=== PATIENT | female | born 2000 | race Two or more races ===

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

== ENCOUNTER 2019-12-26 15:27 | Outpatient (CLI) | payer OTHER ==
[2019-12-26 16:44] LABS: APPEARANCE,URINE CLEAR; BILIRUBIN,URINE NEGATIVE (NEGATIVE); COLOR,URINE YELLOW; GLUCOSE, URINE NEGATIVE (NEGATIVE); KETONES,URINE NEGATIVE (NEGATIVE); LEUKOCYTE ESTERASE,URINE NEGATIVE (NEGATIVE); NITRITE,URINE NEGATIVE (NEGATIVE); PROTEIN,URINE NEGATIVE (NEGATIVE); UROBILINOGEN,URINE NEGATIVE mg/dL (<2.0)
[2019-12-26 17:00] LABS: URINE AMPHETAMINES SCREEN NEGATIVE; URINE BARBITURATES SCREEN NEGATIVE; URINE BENZODIAZEPINES SCREEN NEGATIVE; URINE COCAINE SCREEN NEGATIVE; URINE MARIJUANA (THC) SCREEN NEGATIVE; URINE METHADONE SCREEN NEGATIVE; URINE PHENCYCLIDINE SCREEN NEGATIVE
== END 2019-12-26 17:01 | disposition home or self-care (01) ==
LOC: LC 15:27
PROVIDERS: ATTEND Obstetrics & Gynecology
PROC: 4A1HXCZ Monitoring of Products of Conception, Cardiac Rate, External Approach (ICD-10-PCS; principal; 2019-12-26)
DX: O47.03 False labor before 37 completed weeks of gestation, third trimester (principal); Z3A.35 35 weeks gestation of pregnancy
CPT/HCPCS: 59025; 80307; 81001; 84112

== ENCOUNTER 2020-02-01 06:02 | Outpatient (CLI) | payer OTHER ==
--- NOTE | 2020-02-01 06:07 | Non Stress Test Report ---
Non Stress Test Datetime Report Generated by CPN: 02/01/2020 06:06 DEMOGRAPHIC EGA NST: 35.1 INDICATION Indication for Study (NST) Other: suspected ROM, ctx MONITORING Monitor Explained: Monitor Explained; Test Explained; Patient Verbalized Understanding Time on Monitor: 12/26/2019 15:45 Time off Monitor: 12/26/2019 16:08 NST Duration: 23 NST INTERVENTIONS NST Interventions: None Physician Notified NST: Dr Jose G BABY A: [id number] BABY A Movement : Present Contraction Frequency : 2-6 FHR Baseline : 145 Accelerations : 15X15 Decelerations : None Variability : Moderate 6-25bpm NST Review: Meets Criteria for Reactive NST NST Review and Verified By : TOM ROULUND, RN NST Results: Reactive NST REPORT Report Trigger: Send Report
[2020-02-01 07:15] LABS: APPEARANCE,URINE SLIGHTLY-CLOUDY; BILIRUBIN,URINE NEGATIVE (NEGATIVE); COLOR,URINE YELLOW; GLUCOSE, URINE NEGATIVE (NEGATIVE); KETONES,URINE NEGATIVE (NEGATIVE); LEUKOCYTE ESTERASE,URINE TRACE (NEGATIVE); NITRITE,URINE NEGATIVE (NEGATIVE); PROTEIN,URINE 30 mg/dL (NEGATIVE); URINE SPECIFIC GRAVITY 1.032; UROBILINOGEN,URINE NEGATIVE mg/dL (<2.0)
[2020-02-01 07:32] LABS: URINE AMPHETAMINES SCREEN NEGATIVE; URINE BARBITURATES SCREEN NEGATIVE; URINE BENZODIAZEPINES SCREEN NEGATIVE; URINE COCAINE SCREEN NEGATIVE; URINE MARIJUANA (THC) SCREEN NEGATIVE; URINE METHADONE SCREEN NEGATIVE; URINE PHENCYCLIDINE SCREEN NEGATIVE
--- NOTE | 2020-02-01 10:15 | Non Stress Test Report ---
Non Stress Test Datetime Report Generated by CPN: 02/01/2020 10:15 DEMOGRAPHIC Test Number: 2 EGA NST: 40.3 INDICATION Indication for Study (NST) Other: IUP at 40.3 MONITORING Monitor Explained: Monitor Explained; Test Explained; Patient Verbalized Understanding Time on Monitor: 02/01/2020 06:21 Time off Monitor: 02/01/2020 06:59 NST Duration: 38 NST INTERVENTIONS NST Interventions: PO Hydration Physician Notified NST: P Bojorquez, CNM BABY A Movement : Present Contraction Frequency : Irrgeular FHR Baseline : 140 Accelerations : 15X15 Decelerations : None Variability : Moderate 6-25bpm NST Review: Meets Criteria for Reactive NST NST Review and Verified By : Wanda Sol RN NST Results: Reactive NST REPORT Report Trigger: Send Report
== END 2020-02-01 10:01 | disposition home or self-care (01) ==
LOC: LC 06:02
PROVIDERS: ATTEND Obstetrics & Gynecology
PROC: 4A1HXCZ Monitoring of Products of Conception, Cardiac Rate, External Approach (ICD-10-PCS; principal; 2020-02-01)
DX: Z34.93 Encounter for supervision of normal pregnancy, unspecified, third trimester (principal)
CPT/HCPCS: 59025; 80307; 81005

== ENCOUNTER 2020-02-01 13:39 | Inpatient (IN) | payer OTHER ==
[2020-02-01] MEDS ORDERED: RINGERS SOLUTION,LACTATED 1,000 ML IV ONE (18:48)
[2020-02-01] MEDS ORDERED: RINGERS SOLUTION,LACTATED 1,000 ML IV PRN (18:48)
[2020-02-01 19:20] LABS: ABSOLUTE EOSINOPHILS # (AUTO) 0.1 10^3/uL (0.0-0.6); ABSOLUTE LYMPHOCYTES (AUTO) 3.2 10^3/uL (0.5-4.7); ABSOLUTE MONOCYTES (AUTO) 0.7 10^3/uL (0.1-1.4); ABSOLUTE NEUT (AUTO) 7.3 10^3/uL (1.7-8.2); BASOPHILS % (AUTO) 0.3 % (0-2); EOSINOPHILS % (AUTO) 0.5 % (0-6); HEMATOCRIT 34.8 % (36.0-47.0); HEMOGLOBIN 11.7 g/dL (12.0-15.5); LYMPHOCYTES % (AUTO) 28.3 % (13-45); MEAN CORPUSCULAR HEMOGLOBIN 26.2 pg (27.0-33.4); MEAN CORPUSCULAR HGB CONC 33.5 g/dL (32.0-36.0); MEAN CORPUSCULAR VOLUME 78 fl (80-97); MONOCYTES % (AUTO) 6.2 % (3-13); PLATELET COUNT 322 10^3/uL (150-450); RED BLOOD COUNT 4.45 10^6/uL (3.72-5.28); RED CELL DISTRIBUTION WIDTH 14.5 % (11.5-14.0); SEGMENTED NEUTROPHILS % (AUTO) 64.7 % (42-78); TOTAL CELLS COUNTED % (AUTO) 100 %; WHITE BLOOD COUNT 11.3 10^3/uL (4.0-10.5)
[2020-02-01] MEDS ORDERED: OXYTOCIN/NORMAL SALINE 20 UNIT/1,000 ML RTUINJ ONE (22:29)
[2020-02-01] MEDS ORDERED: MISOPROSTOL 0.2 MG TABLET ONE (22:29)
[2020-02-01] MEDS ORDERED: OXYTOCIN 10 UNIT/ML VIAL ONE (22:29)
[2020-02-01] MEDS ORDERED: LIDOCAINE 1% INJ-PF (10 MG/ML) 30 ML SDV ONE (22:29)
--- NOTE | 2020-02-01 22:35 | Admission Physical ---
Datetime Report Generated by CPN: 02/01/2020 22:35 CURRENT ADMISSION Chief Complaint: Uterine Contractions Indication for Induction: Not Applicable Admit Impression : Term, Intrauterine ; Active Labor; Intact Membranes Admit Plan: Admit to Unit; Initiate Labor Protocol ALLERGIES Medication Allergies: No Medication Allergies: No Known Allergies (11/28/2017) Latex: No Latex Allergies Food Allergies: lactose Environmental Allergies: n/a OBSTETRICAL HISTORY EDC: 01/29/2020 00:00 : 1 Para: 0 Term: 0 : 0 SAB: 0 IAB: 0 Ectopic: 0 Livin Cesareans: 0 VBACs: 0 Multiple Births: 0 Gestational Diabetes: No Rh Sensitization: No Incompetent Cervix: No AGUILAR: No Infertility: No ART Treatment: No Uterine Anomaly: No IUGR: No Hx Previous C/S: No Macrosomia: No Hx Loss/Stillborn: No PIH: No Hx : No Placenta Previa/Abruption: No Depression/PP Depression: No PTL/PROM: No Post Hemorrhage: No Current Procedures: Ultrasound; NST Obstetrical History Comments: G1- current SEE RECORDS Alcohol: No Marijuana : No Cocaine: No Other Illicit Drugs: No Cigarettes: Never Smoker. 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 Surgery: No Heart Disease: No Hosp/Surgery: Yes Autoimmune Disorder: No Anesthetic Complications: No Kidney Disease: No Abnormal Pap Smear: No Neuro/Epilepsy: No Psychiatric Disorders: Yes Other Medical Diseases: No Hepatitis/Liver Disease: No Significant Family History: No Varicosities/Phlebitis: No Trauma/Violence : No Thyroid Dysfunction: No Medical History Comments: anxiety, ankle surgery (2017) INFECTIOUS HISTORY Gonorrhea: No Genital Herpes: No Chlamydia: Yes Tuberculosis: No Syphilis: No Hepatitis: No HIV/AIDS Exposure: No Rash or Viral Illness: No HPV: No Infectious History Comments: [id number] negative JESSIE PHYSICAL EXAM General: Normal HEENT: Normal Neurologic: Normal Thyroid: Deferred Heart: Normal Lungs: Normal Breast: Deferred Back: Normal Abdomen: Normal Genitourinary Exam: Normal Extremities: Normal DTRs: Normal Pelvic Type: Adequate Vital Signs: Reviewed VAGINAL EXAM Dilatation: 6 Effacement: 70 Station: -2 Contraction Comments: q 5 MEMBRANES Membranes: Intact FETUS A EGA: 40.3 Monitoring: External US FHR- Baseline: 160 Variability: Moderate 6-25bpm Accelerations: 15X15 Decelerations: None FHR Category: Category I Presentation: Vertex Admit Comment: 19yo at 40+3ega presents for prodromal labor and then ambulated and now cervical change from 4 to now 4.5 - 5cm. Reviewed continued ambulation and movement since she does not desire epidural and minimal cervical change with contractions spacing out. She desires to proceed then returned with cvx 5-6cm. Labs already drawn. She does have a right breas mass which was painful - but never obtained the breast US that was ordered. Chlamydia during with good JESSIE. H/o Anxiety. LGSIL pap. Admit and reviewed will likely need to augment labor. AROM when head descent. Anticipate . AROM completed and clear fluid. PLANS FOR LABOR AND DELIVERY Labor and Delivery: None Pain Management: Epidural Feeding Preference: Breast Benefit of Breast Feed Discussed: Yes Circumcision: Yes INFORMED CONSENT Informed Consent Obtained: Vaginal Delivery; Risks, Benefits and Alternatives Discussed Signature: with User ID: [email or web address]
[2020-02-01 23:00] LABS: APPEARANCE,URINE SLIGHTLY-CLOUDY; BILIRUBIN,URINE NEGATIVE (NEGATIVE); COLOR,URINE STRAW; GLUCOSE, URINE NEGATIVE (NEGATIVE); KETONES,URINE NEGATIVE (NEGATIVE); LEUKOCYTE ESTERASE,URINE NEGATIVE (NEGATIVE); NITRITE,URINE NEGATIVE (NEGATIVE); PROTEIN,URINE NEGATIVE (NEGATIVE); URINE SPECIFIC GRAVITY 1.004; UROBILINOGEN,URINE NEGATIVE mg/dL (<2.0)
[2020-02-01 23:24] LABS: URINE AMPHETAMINES SCREEN NEGATIVE; URINE BARBITURATES SCREEN NEGATIVE; URINE BENZODIAZEPINES SCREEN NEGATIVE; URINE COCAINE SCREEN NEGATIVE; URINE MARIJUANA (THC) SCREEN NEGATIVE; URINE METHADONE SCREEN NEGATIVE; URINE PHENCYCLIDINE SCREEN NEGATIVE
[2020-02-02] MEDS ORDERED: OXYTOCIN/NORMAL SALINE 20 UNIT/1,000 ML RTUINJ IV PRN ×2 (00:04→06:16)
[2020-02-02] MEDS ORDERED: BUPIVACAINE HCL 0.25 % INJ/PF (2.5 MG/1 ML) 30 ML VIAL ONE ×2 (00:29→02:56)
[2020-02-02] MEDS ORDERED: EPHEDRINE SULFATE INJ 50 MG/1 ML AMPULE ONE ×2 (00:29→02:55)
[2020-02-02] MEDS ORDERED: FENTANYL/BUPIVACAINE/NS/PF 0 MCG/0 ML RTUINJ EPI ONE (00:29)
[2020-02-02] MEDS ORDERED: FENTANYL/BUPIVACAINE/NS/PF 300 MCG/150 ML RTUINJ EPI ONE (02:55)
[2020-02-02] MEDS ORDERED: GLYCERIN/WITCH HAZEL LEAF 1 EACH MED..WIPE TP PRN (06:16)
[2020-02-02] MEDS ORDERED: NA PHOS,M-B/NA PHOS,DI-BA (ADULT) 133 ML ENEMA PR PRN (06:16)
[2020-02-02] MEDS ORDERED: ZOLPIDEM TARTRATE 5 MG TABLET PO PRN (06:16)
[2020-02-02] MEDS ORDERED: PROMETHAZINE HCL 25 MG SUPP.RECT PR PRN (06:16)
[2020-02-02] MEDS ORDERED: MEASLES,MUMPS&RUBELLA VACC/PF 0.5 ML VIAL SUBCUT PRN (06:16)
[2020-02-02] MEDS ORDERED: MISOPROSTOL 0.2 MG TABLET PR ONE (06:16)
[2020-02-02] MEDS ORDERED: BENZOCAINE/MENTHOL AEROSOL SPRAY 56 ML TOP PRN (06:16)
[2020-02-02] MEDS ORDERED: PSEUDOEPHEDRINE HCL 30 MG TABLET PO PRN (06:16)
[2020-02-02] MEDS ORDERED: ACETAMINOPHEN 325 MG TABLET PO PRN (06:16)
[2020-02-02] MEDS ORDERED: PROMETHAZINE HCL 25 MG TABLET PO PRN (06:16)
[2020-02-02] MEDS ORDERED: DIPH/PERTUSS(ACELL)/TETANUS VAC/PF 0.5 ML SYR (>=10YO) IM PRN (06:16)
[2020-02-02] MEDS ORDERED: PROMETHAZINE HCL INJ 25 MG/1 ML VIAL IV PRN (06:16)
[2020-02-02] MEDS ORDERED: IBUPROFEN 800 MG TABLET ONE ×2 (06:16→14:13)
[2020-02-02] MEDS ORDERED: MAGNESIUM HYDROXIDE SUSP 30 ML UDCUP PO PRN (06:16)
[2020-02-02] MEDS ORDERED: DIBUCAINE 1% OINTMENT 28 GM TP PRN (06:16)
[2020-02-02] MEDS ORDERED: DIPHENHYDRAMINE HCL 25 MG CAPSULE PO PRN (06:16)
[2020-02-02] MEDS ORDERED: ACETAMINOPHEN WITH CODEINE #3 TABLET PO PRN ×2 (06:16)
[2020-02-02] MEDS ORDERED: PRENATAL VITAMIN W DHA CAPSULE PO ONE (09:16)
[2020-02-02] MEDS ORDERED: DOCUSATE SODIUM 100 MG CAPSULE ONE (09:16)
[2020-02-02] MEDS ORDERED: ACETAMINOPHEN WITH CODEINE #3 TABLET ONE (09:16)
[2020-02-02] MEDS ORDERED: SENNOSIDES/DOCUSATE 8.6-50 MG 1 EACH TABLET ONE (09:16)
[2020-02-02] MEDS ORDERED: FERROUS SULFATE 325 MG TABLET PO ONE (09:17)
[2020-02-02] MEDS: FERROUS SULFATE 325 MG TABLET PO SCH ×2 (09:25→18:03)
[2020-02-02] MEDS: PRENATAL VITAMIN W DHA CAPSULE PO SCH (09:25)
[2020-02-02] MEDS: DOCUSATE SODIUM 100 MG CAPSULE PO SCH ×2 (09:25→18:03)
[2020-02-02] MEDS: SENNOSIDES/DOCUSATE 8.6-50 MG 1 EACH TABLET PO SCH (09:25)
--- NOTE | 2020-02-02 11:02 | Warning Signs in Babies ---
VOD Warning Signs Datetime Report Generated by N: 02/02/2020 11:02 VOD#608 -Warning Signs in Babies: Viewed with Parent(s)/Family (02/02/2020 11:00:Shelby Craft RN)
[2020-02-02] MEDS: FAMOTIDINE 20 MG TABLET PO SCH ×2 (12:06→21:48)
[2020-02-02] MEDS: IBUPROFEN 800 MG TABLET PO SCH ×2 (14:27→21:49)
[2020-02-02] MEDS ORDERED: INFLUENZA QUAD (6MOS+) 2019-20 VAC 0.5 ML SYR IM ONE (15:26)
[2020-02-03] MEDS: IBUPROFEN 800 MG TABLET PO SCH (05:26)
[2020-02-03 07:04] LABS: HEMATOCRIT 31.1 % (36.0-47.0); HEMOGLOBIN 10.4 g/dL (12.0-15.5); MEAN CORPUSCULAR HEMOGLOBIN 26.3 pg (27.0-33.4); MEAN CORPUSCULAR HGB CONC 33.3 g/dL (32.0-36.0); MEAN CORPUSCULAR VOLUME 79 fl (80-97); PLATELET COUNT 298 10^3/uL (150-450); RED BLOOD COUNT 3.94 10^6/uL (3.72-5.28); RED CELL DISTRIBUTION WIDTH 14.7 % (11.5-14.0); WHITE BLOOD COUNT 14.6 10^3/uL (4.0-10.5)
[2020-02-03] MEDS: FERROUS SULFATE 325 MG TABLET PO SCH (09:48)
[2020-02-03] MEDS: PRENATAL VITAMIN W DHA CAPSULE PO SCH (09:48)
[2020-02-03] MEDS: DOCUSATE SODIUM 100 MG CAPSULE PO SCH (10:06)
[2020-02-03] MEDS: SENNOSIDES/DOCUSATE 8.6-50 MG 1 EACH TABLET PO SCH (10:07)
[2020-02-03] MEDS: FAMOTIDINE 20 MG TABLET PO SCH (10:08)
--- NOTE | 2020-02-03 12:12 | PDOC PROGRESS REPORT ---
Subjective-OB Progress Note for:: 02/03/20 Subjective: Pt doing well, no concerns. Would like to go home today. She reports light bleeding, reg diet and voiding without difficulty. GBS neg. Physical Exam (OB) Vital Signs: Temp Pulse Resp BP Pulse Ox 97.8 F 73 18 120/77 99 02/03/20 07:45 02/03/20 07:45 02/03/20 07:45 02/03/20 07:45 02/03/20 07:45 Intake & Output 02/02/20 02/03/20 02/04/20 06:59 06:59 06:59 Weight 110 kg - Lochia Lochia Amount: Scant < 10 ml Lochia Color: Rubra/Red - Abdomen Description: Soft, Round Hernia Present: No Fundal Description: Firm, Midline Fundal Height: u/u - u/2 Objective-Diagnostic Laboratory: 02/03/20 06:19 02/03/20 06:19 WBC 14.6 H RBC 3.94 Hgb 10.4 L Hct 31.1 L MCV 79 L MCH 26.3 L MCHC 33.3 RDW 14.7 H Plt Count 298 Assessment and Plan(PN) - Assessment and Plan (1) Normal course Is this a current diagnosis for this admission?: Yes (2) Active labor at term Is this a current diagnosis for this admission?: Yes (3) Compound presentation, delivered, current hospitalization Is this a current diagnosis for this admission?: Yes (4) Meconium in amniotic fluid Is this a current diagnosis for this admission?: Yes (5) Vaginal delivery Is this a current diagnosis for this admission?: Yes - Time Spent with Patient Time with patient: Less than 15 minutes Medications reviewed and adjusted accordingly: Yes - Disposition Anticipated Discharge: Home Within: within 24 hours
--- NOTE | 2020-02-03 12:12 | PDOC DISCHARGE SUMMARY ---
Impression - Admit/DC Date/PCP Admission Date/Primary Care Provider: 02/01/20 19:26 [facility] Discharge Date: 02/03/20 - Discharge Diagnosis (1) Normal course Is this a current diagnosis for this admission?: Yes (2) Active labor at term Is this a current diagnosis for this admission?: Yes (3) Compound presentation, delivered, current hospitalization Is this a current diagnosis for this admission?: Yes (4) Meconium in amniotic fluid Is this a current diagnosis for this admission?: Yes (5) Vaginal delivery Is this a current diagnosis for this admission?: Yes - Additional Information Resuscitation Status: Full Code Discharge Diet: Regular Discharge Activity: Balance Activity w/Rest, Pelvic Rest Referrals: [facility] [Primary Care Provider] - Prescriptions: Ibuprofen [Motrin 800 mg Tablet] 800 mg PO Q8HP PRN #60 tablet PRN Reason: Home Medications: Famotidine [Pepcid AC] 10 mg PO PRN PRN 02/01/20 Prenat 115/Iron Fum/Folic/Dss [ 19 Tablet] 1 tab PO DAILY 02/01/20 Ibuprofen [Motrin 800 mg Tablet] 800 mg PO Q8HP PRN #60 tablet 02/03/20 HPI Gestational Age: 40.4 Reason(s) for Admission: Onset of Labor Procedures: NST Intrapartum Procedure(s): Spontaneous Vaginal Delivery Complication(s): Laceration-Labial Laceration-Degree: 1st Results Laboratory Results: WBC 14.6 10^3/uL (4.0-10.5) H 02/03/20 06:19 RBC 3.94 10^6/uL (3.72-5.28) 02/03/20 06:19 Hgb 10.4 g/dL (12.0-15.5) L 02/03/20 06:19 Hct 31.1 % (36.0-47.0) L 02/03/20 06:19 MCV 79 fl (80-97) L 02/03/20 06:19 MCH 26.3 pg (27.0-33.4) L 02/03/20 06:19 MCHC 33.3 g/dL (32.0-36.0) 02/03/20 06:19 RDW 14.7 % (11.5-14.0) H 03/21/20 06:19 Plt Count 298 10^3/uL (150-450) 02/03/20 06:19 Lymph % (Auto) 28.3 % (13-45) 02/01/20 18:50 [place] % (Auto) 6.2 % (3-13) 02/01/20 18:50 Eos % (Auto) 0.5 % (0-6) 02/01/20 18:50 Baso % (Auto) 0.3 % (0-2) 02/01/20 18:50 Absolute Neuts (auto) 7.3 10^3/uL (1.7-8.2) 02/01/20 18:50 Absolute Lymphs (auto) 3.2 10^3/uL (0.5-4.7) 02/01/20 18:50 Absolute Monos (auto) 0.7 10^3/uL (0.1-1.4) 02/01/20 18:50 Absolute Eos (auto) 0.1 10^3/uL (0.0-0.6) 02/01/20 18:50 Absolute Basos (auto) 0.0 10^3/uL (0.0-0.2) 02/01/20 18:50 Seg Neutrophils % 64.7 % (42-78) 02/01/20 18:50 Urine Color STRAW 02/01/20 20:35 Urine Appearance SLIGHTLY-CLOUDY 02/01/20 20:35 Urine pH 7.0 (5.0-9.0) 02/01/20 20:35 Ur Specific [place] 1.004 02/01/20 20:35 Urine Protein NEGATIVE mg/dL (NEGATIVE) 02/01/20 20:35 Urine Glucose (UA) NEGATIVE mg/dL (NEGATIVE) 02/01/20 20:35 Urine Ketones NEGATIVE mg/dL (NEGATIVE) 02/01/20 20:35 Urine Blood SMALL (NEGATIVE) H 02/01/20 20:35 Urine Nitrite NEGATIVE (NEGATIVE) 02/01/20 20:35 Urine Bilirubin NEGATIVE (NEGATIVE) 02/01/20 20:35 Urine Urobilinogen NEGATIVE mg/dL (<2.0) 02/01/20 20:35 Ur Leukocyte Esterase NEGATIVE (NEGATIVE) 02/01/20 20:35 Urine Ascorbic Acid NEGATIVE (NEGATIVE) 02/01/20 20:35 Urine Opiates Screen NEGATIVE 03/19/20 20:35 Urine Methadone Screen NEGATIVE 02/01/20 20:35 Ur Barbiturates Screen NEGATIVE 02/01/20 20:35 Ur Phencyclidine Scrn NEGATIVE 02/01/20 20:35 Ur Amphetamines Screen NEGATIVE 02/01/20 20:35 U Benzodiazepines Scrn NEGATIVE 02/01/20 20:35 Urine Cocaine Screen NEGATIVE 02/01/20 20:35 U Marijuana (THC) Screen NEGATIVE 02/01/20 20:35 RPR NONREACTIVE (NONREACTIVE) 02/01/20 18:50 Blood Type B POSITIVE 02/01/20 18:50 Antibody Screen NEGATIVE 02/01/20 18:50 Plan Plan of Treatment: f/u at [facility] 4 wks Time Spent: Less than 30 Minutes
[2020-02-03 17:58] VITALS: BP 132/84
--- NOTE | 2020-02-06 11:13 | Delivery Summary ---
Del Sum A-C Datetime Report Generated by CPN: 02/06/2020 11:13 DELIVERY PERSONNEL DELIVERY PERSONNEL: [id number] Delivery Doctor:: Rachel Barry MD Anesthesiologist:: Elijah Diaz MD Labor and Delivery Nurse:: Ly Dotson RNbundle collector Nurse:: SERGIO Porter [employer] Manager/ORDER MANAGER: Lucy Enoc, [employer]ER MATERNAL INFORMATION Delivery Anesthesia: Epidural Medications After Delivery: Pitocin Bolus-Please Comment; Cytotec 1000mcg Per Rectum/Vagina Estimated Blood Loss (ml): 200 Delivery QBL: 200 Maternal Complications: None Provider Comments: VMI delivered in [place] presenation with compound at right shoulder and left compound hand. Shoulders and body delivered without difficulty. Cord doubly clamped and cut and infant to maternal abdomen for NRP. Placenta delivered intact and trailing membranes removed with manual exploration. FF at U. Cytotec 1000mcg NE placed. Good hemostasis. Superficial right labial laceration hemostatic and no need for repair. Mother and baby stable upon provider leaving the room. LABOR SUMMARY EDC: 01/29/2020 00:00 No. Babies in Womb: 1 Attempted: No Labor Anesthesia: Epidural LABOR INFORMATION Reason for Induction: Not Applicable Onset of Labor: 02/01/2020 22:00 Complete Dilatation: 02/02/2020 05:05 Oxytocin: Augmentation Group B Beta Strep: Negative Antibiotics # of Doses: none Steroids Given: None Reason Steroids Not Administered: Not Applicable MEMBRANES Membranes Rupture Method: Artificial Rupture of Membranes: 02/01/2020 21:56 Length of Rupture (hr): 7.97 Amniotic Fluid Color: Clear Amniotic Fluid Amount: Moderate Amniotic Fluid Odor: None STAGES OF LABOR Stage 1 hr: 7 Stage 1 min: 5 Stage 2 hr: 0 Stage 2 min: 49 Stage 3 hr: 0 Stage 3 min: 3 Total Time in Labor hr: 7 Total Time in Labor min: 57 VAGINAL DELIVERY Episiotomy: None Laceration #1: None Laceration Extension #1: N/A Laceration Repair: Not Applicable Laceration Repair Note: superficial right labial laceration repaired with good hemostasis. Sponge Count Correct: Yes Sharps Count Correct: Yes CSECTION DELIVERY Primary Indication: N/A Secondary Indication: N/A CSection Incidence: N/A Labor: N/A Elective: N/A CSection Incision: N/A BABY A INFORMATION Infant Delivery Date/Time: 02/02/2020 05:54 Method of Delivery: Vaginal Nurse Controlled Delivery: No Born in Route : No : N/A Forceps: N/A Vacuum Extraction: N/A Shoulder Dystocia : No PRESENTATION/POSITION BABY A Presentation: Cephalic Cephalic Presentation: Vertex Vertex Position: Left Occipital Anterior Breech Presentation: N/A PLACENTA INFORMATION BABY A Placenta Delivery Time : 02/02/2020 05:57 Placenta Method of Delivery: Spontaneous Placenta Status: Delivered SCORES BABY A Heart Rate 1 min: >100 bpm Resp Effort 1 min: Good Cry Reflex Irritability 1 min: Cough or Sneeze or Pulls Away Muscle Tone 1 min: Some Flexion of Extremities Color 1 min: Body Spring, Extremities Blue Resuscitation Effort 1 min: Tactile Stimulation SCORE 1 MIN: 8 Heart Rate 5 min: >100 bpm Resp Effort 5 min: Good Cry Reflex Irritability 5 min: Cough or Sneeze or Pulls Away Muscle Tone 5 min: Active Motion Color 5 min: Body Spring, Extremities Blue Resuscitation Effort 5 min: Tactile Stimulation SCORE 5 MIN: 9 INFANT INFORMATION BABY A Gestational Age at Delivery: 40.4 Gestational Status: Full Term- 39- 40.6 Weeks Infant Outcome : Liveborn Condition : Stable Infant Sex: Male IDENTIFICATION BABY A Infant Verification Date/Time: 02/02/2020 06:05 ID Band Number: [id number] Mother's Name Verified: Yes Infant RN Verifying : C. Dotson, RN Additional Verifying Personnel: L. Gibran, [employer] P[employer]ER WEIGHT/LENGTH BABY A Birthweight (gm): 3670 Infant Weight (lb): 8 Infant Weight (oz): 1 Length (in): 21.00 Infant Length (cm): 53.34 CORD INFORMATION BABY A No. Cord Vessels: 3 Nuchal Cord : N/A Cord Blood Taken: N/A Infant Suction: Mouth; Nose ASSESSMENT BABY A Skin to Skin: Yes BABY B INFORMATION : N/A SIGNATURES Signature: with User ID: [email or web address]
== END 2020-02-03 18:43 | disposition home or self-care (01) | DRG 807 ==
LOC: LC 13:39 → LR 19:26 → 2S 02-02 14:38
PROVIDERS: ADMIT Student in an Organized Health Care Education/Training Program; ATTEND Student in an Organized Health Care Education/Training Program
PROC: 10E0XZZ Delivery of Products of Conception, External Approach (ICD-10-PCS; principal; 2020-02-02)
PROC: 0HQ9XZZ Repair Perineum Skin, External Approach (ICD-10-PCS; 2020-02-02)
DX: O77.0 Labor and delivery complicated by meconium in amniotic fluid (principal); Z37.0 Single live birth; O99.344 Other mental disorders complicating childbirth; O70.0 First degree perineal laceration during delivery; O32.6XX0 Maternal care for compound presentation, not applicable or unspecified; F41.9 Anxiety disorder, unspecified; Z86.19 Personal history of other infectious and parasitic diseases; Z3A.40 40 weeks gestation of pregnancy
CPT/HCPCS: 36415; 80307; 81005; 85025; 85027; 86592; 86850; 86900; 86901; 90686; 90715; J2590; J3010; J3490